=== PATIENT | female | born 1985 | race Caucasian/White ===

== ENCOUNTER 2019-03-17 21:00 | Emergency (ER) | payer OTHER, MEDICAID ==
[~2019-03-17] VITALS: Ht 170 cm; Wt 111.4 kg
[~2019-03-17 21:00] MED LIST: NAPR-243 PO; PRAM0.252 PO
[2019-03-17] MEDS ORDERED: MELO15TA39 PO (21:24)
[2019-03-17] MEDS ORDERED: POLY119P5 PO (21:24)
[2019-03-17] MEDS ORDERED: RX-ONDANSETRON 4 MG ODT (ZOFRAN) PPK #4 PO STA (21:27)
--- NOTE | 2019-03-17 21:27 | ED GI ---
General Chief Complaint: Abdominal/GI Problems Stated Complaint: CONSTIPATION Source of Information: Patient Exam Limitations: No Limitations History of Present Illness Date Seen by Provider: Mar 17, 2019 Time Seen by Provider: 21:11 Initial Comments Patient present to ER by private conveyance with chief complaint of mild abdominal upset and constipation with inability to have a substantial bowel movement for the past week. She's been using MiraLAX daily as well as enemas 4 times in the last 2 days and mag citrate twice in the last couple days. She has a history of chronic constipation. She does not have gastroparesis or diabetes. She's not had any abdominal surgeries. She does have a history of diverticulosis and has had a couple diverticulitis flares in the past. She's having no fever. She is having nausea and hard time keeping fluids down. Allergies and Home Medications Allergies Uncoded Allergies: chocolate (Allergy, Unknown, 03/17/19) Patient Home Medication List Home Medication List Reviewed: Yes Review of Systems Review of Systems Constitutional: No chills, No diaphoresis, No fever EENTM: No Blurred Vision, No Double Vision Respiratory: Denies Cough, Denies Shortness of Air Cardiovascular: Denies Chest Pain, Denies Edema Gastrointestinal: See HPI, Constipated; Denies Diarrhea Genitourinary: Denies Burning, Denies Discharge Musculoskeletal: No back pain, No joint pain Skin: No pruritus, No rash Past [id number] Hx Patient Social History Alcohol Use: Denies Use Recreational Drug Use: No Smoking Status: Never a Smoker Recent Foreign Travel: No Contact w/Someone Who Travel: No Physical Exam Vital Signs Capillary Refill : Height/Weight/BMI Height: '" Weight: lbs. oz. kg; BMI Method: General Appearance: WD/WN, no apparent distress HEENT: PERRL/EOMI, pharynx normal Respiratory: no respiratory distress, no accessory muscle use Cardiovascular: normal peripheral pulses, regular rate, rhythm Gastrointestinal: normal bowel sounds, non tender, soft, no organomegaly Neurologic/Psychiatric: alert, normal mood/affect, oriented x 3 Skin: normal color, warm/dry Departure Impression Primary Impression: Obstipation Disposition: HOME, SELF-CARE Condition: Stable Departure-Patient Inst. Decision time for Depature: 21:27 Referrals: NO,LOCAL PHYSICIAN (PCP/Family) Primary Care Physician Patient Instructions: Constipation, Adult (DC) Add. Discharge Instructions: decision support analyst the GoLYTELY and take 6-8 ounces every 20-30 minutes until the jug is gone. You may continue the phosphate sodium enemas or you may make an enema using a bucket and adding the contents of 6 capsules of Dulcolax, a bottle of milk of magnesia, one half cup of honey or molasses and 1 phosphate sodium enema put in over about 45 minutes to an hour. If you begin to have experienced pain not treated by 1000 mg Tylenol or 800 mg ibuprofen every 8 hours each then you can use heating pads. If this does not help then you may return to the ER. If you have nausea or vomiting you may take one to 2 tablets of Zofran every 6 hours as needed. All discharge instructions reviewed with patient and/or family. Voiced understanding. Scripts Peg/Electrolytes (Golytely Solution) 4,000 Ml Soln 4000 ML PO ONCE for 1 Day, #1 EA 0 Refills Prov: AMADEO BERNAL 03/17/19 Work/School Note: Work Release Form Date Seen in the Emergency Department: Mar 17, 2019 Return to Work: Mar 19, 2019 Restrictions: No Restrictions AMADEO BERNAL Mar 17, 2019 21:27 POS
[2019-03-17] MEDS ORDERED: CLT4KB PO (21:33)
[2019-03-17] MEDS ORDERED: ONDA4TAB11 PO (21:34)
[2019-03-17 21:37] VITALS: BP 148/97
== END 2019-03-17 21:36 | disposition home or self-care (01) ==
LOC: ER 21:03 → MERGE 21:03 → ER 21:36
DX: K59.00 Constipation, unspecified (principal); Z87.19 Personal history of other diseases of the digestive system
CPT/HCPCS: 99283